=== PATIENT | male | born 1960 | race Hispanic/Latino ===

== ENCOUNTER → 2019-02-27 | Outpatient (CLI) | payer BC ==
[~2019-02-27] MED LIST: LEVO75TA10 PO; TAMS0.4C32 PO
== END | disposition home or self-care (01) ==
LOC: SLP 20:03
PROVIDERS: ATTEND Family Medicine
DX: G47.33 Obstructive sleep apnea (adult) (pediatric) (principal)
CPT/HCPCS: 95811

== ENCOUNTER 2023-05-02 11:27 | Inpatient (IN) | payer BC ==
[~2023-05-02] VITALS: Ht 160 cm; Wt 131.5 kg
[~2023-05-02 11:27] MED LIST changes: +LEVO-70 PO; -LEVO75TA10 PO; +PIOG15TA6 PO; -TAMS0.4C32 PO
[2023-05-02] MEDS ORDERED: 0.9%NACL 1000ML 1,707 ML IV ONE (12:00)
[2023-05-02] MEDS ORDERED: CEFTRIAXONE 2GM VIAL IVPB ONE (12:00)
[2023-05-02 12:16] LABS: BASOPHILS # (AUTO) 0.05 K/uL (0.00-0.20); BASOPHILS % (AUTO) 0.5 % (0.0-5.0); EOSINOPHILS # (AUTO) 0.24 K/uL (0.00-0.70); EOSINOPHILS % (AUTO) 2.2 % (0.0-8.0); IMMATURE GRANULOCYTE ABSOLUTE 0.09 K/uL (0-1); LYMPHOCYTES # (AUTO) 0.7 K/uL (1.0-4.8); LYMPHOCYTES % (AUTO) 6.5 % (21.0-51.0); MEAN CORPUSCULAR HEMOGLOBIN 29.8 pg (27.0-33.0); MEAN CORPUSCULAR HGB CONC 33.2 g/dL (32.0-36.0); MEAN CORPUSCULAR VOLUME 89.8 fL (79-99); MONOCYTES # (AUTO) 0.7 K/uL (0.1-1.0); MONOCYTES % (AUTO) 6.2 % (3.0-13.0); NEUTROPHILS # (AUTO) 9.1 K/uL (1.8-7.7); NEUTROPHILS % (AUTO) 83.8 % (40.0-77.0); PLATELET COUNT (AUTO) 261 K/uL (130-400); RED CELL DISTRIBUTION WIDTH 15.3 % (11.0-15.5); WHITE BLOOD COUNT (AUTO) 10.8 K/uL (4.8-10.8)
[2023-05-02 12:28] LABS: INR 1.02 (0.85-1.15); PROTHROMBIN TIME 11.8 SEC (9.6-11.6)
[2023-05-02 12:29] LABS: PARTIAL THROMBOPLASTIN TIME 27.6 SEC (26.3-35.5)
[2023-05-02 12:34] LABS: CREATININE 2.5 mg/dL (0.5-1.5); POTASSIUM 4.1 mmol/L (3.5-5.1)
[2023-05-02 12:39] LABS: BILIRUBIN,TOTAL 0.8 mg/dL (0.2-1.0); TOTAL PROTEIN, SERUM 6.9 g/dL (6.0-8.3)
[2023-05-02] MEDS ORDERED: ONDANSETRON 4MG INJ IVP ONE (14:30)
[2023-05-02 16:29] LABS: APPEARANCE,URINE CLOUDY (CLEAR); BILIRUBIN,URINE NEGATIVE (NEGATIVE); COLOR,URINE LIGHT-YELLOW (YELLOW); GLUCOSE, URINE (UA) TRACE mg/dL (NEGATIVE); KETONES,URINE NEGATIVE (NEGATIVE); LEUKOCYTE ESTERASE ,URINE NEGATIVE Leu/uL (NEGATIVE); NITRATE,URINE NEGATIVE (NEGATIVE); OCCULT BLOOD,URINE NEGATIVE (NEGATIVE); PROTEIN,URINE 30 mg/dL (NEGATIVE); UROBILINOGEN,URINE 0.2 mg/dL (0.2-1.0)
[2023-05-02 16:30] LABS: ADD UA MICROSCOPIC YES
[2023-05-02 16:32] LABS: MUCUS,URINE RARE LPF (None Seen); RBC,URINE 0-1 /HPF (0-1); SQUAMOUS EPITHELIAL CELL,UR RARE /HPF (0-2)
[2023-05-02] MEDS ORDERED: TEMAZEPAM 15 MG CAPSULE PO PRN (20:00)
[2023-05-02] MEDS ORDERED: ONDANSETRON 4MG INJ IVP PRN (20:00)
[2023-05-02] MEDS ORDERED: HYDRALAZINE 20MG/ML VIAL IV PRN (20:00)
[2023-05-02] MEDS ORDERED: ACETAMINOPHEN 650 MG SUPPOSITORY RC PRN (20:00)
[2023-05-02] MEDS ORDERED: MORPHINE 4 MG SYG IVP PRN (20:00)
[2023-05-02] MEDS: ZOSYN 3.375GM +NS 50ML IVPB SCH (20:54)
[2023-05-02] MEDS: INSULIN HUMULIN R 100 UNIT/ML 3ML SQ SCH (20:58)
[2023-05-02] MEDS ORDERED: 0.9%NACL 50ML IV SCH (21:00)
[2023-05-02] MEDS ORDERED: NOREPINEPHRIN 4MG/NS 250ML 250 ML IV ONE (21:31)
[2023-05-02] MEDS ORDERED: NOREPINEPHRIN 4MG/NS 250ML 250 ML IV SCH (22:00)
[2023-05-03] VITALS (8 sets, daily range): BP systolic 119–146; BP diastolic 52–73; PULSE 85–100; RESP 18–23; O2SAT 96–98
[2023-05-03 06:18] LABS: HEMATOCRIT 40.6 % (42-54); MEAN CORPUSCULAR HGB CONC 32.5 g/dL (32.0-36.0); MEAN CORPUSCULAR VOLUME 92.3 fL (79-99); RED BLOOD CELL COUNT(AUTO) 4.4 MIL/uL (4.50-6.20); RED CELL DISTRIBUTION WIDTH 15.5 % (11.0-15.5); WHITE BLOOD COUNT (AUTO) 7.7 K/uL (4.8-10.8)
[2023-05-03 06:43] LABS: CREATININE 1.3 mg/dL (0.5-1.5); MAGNESIUM 1.6 mg/dL (1.80-2.40); PHOSPHORUS 2.6 mg/dL (2.5-4.9); POTASSIUM 4.1 mmol/L (3.5-5.1); THYROID STIMULATING HORMONE 1.77 uIU/mL (0.36-3.74)
[2023-05-03] MEDS: INSULIN HUMULIN R 100 UNIT/ML 3ML SQ SCH ×4 (07:30→20:07)
[2023-05-03] MEDS: ZOSYN 3.375GM +NS 50ML IVPB SCH ×2 (08:31→21:56)
[2023-05-03] MEDS: ENOXAPARIN SODIUM 40 MG/0.4 ML SYRINGE SQ SCH (08:31)
[2023-05-03] MEDS: PANTOPRAZOLE 40 MG/VIAL IVP SCH ×2 (08:31→21:56)
[2023-05-03] MEDS: DEXTROSE 5 %-0.45 % NACL 1,000 ML IV SCH ×2 (08:33→16:30)
[2023-05-03] MEDS ORDERED: MAGNESIUM 2GM PREMIX 50ML 50 ML IV PRN (09:00)
[2023-05-03] MEDS ORDERED: POTASSIUM CHLORIDE 20MEQ/100ML 100 ML IV PRN (09:00)
[2023-05-03] MEDS ORDERED: KCL 20 MEQ ERTAB PO PRN (09:00)
[2023-05-03] MEDS ORDERED: POTASSIUM CHLORIDE 10% ELIXIR 20 MEQ/15 ML UDCUP PO PRN (09:00)
[2023-05-04] MEDS ORDERED: ACETAMINOPHEN 325 MG TAB PO PRN ×2
[2023-05-04 00:10] VITALS: BP 147/68; PULSE 86; RESP 20
[2023-05-04] MEDS: DEXTROSE 5 %-0.45 % NACL 1,000 ML IV SCH ×2 (00:30→08:30)
[2023-05-04 04:27] VITALS: BP 152/79; PULSE 66; RESP 19
[2023-05-04 04:40] LABS: HEMATOCRIT 38.9 % (42-54); MEAN CORPUSCULAR HEMOGLOBIN 29.7 pg (27.0-33.0); MEAN CORPUSCULAR HGB CONC 31.9 g/dL (32.0-36.0); MEAN CORPUSCULAR VOLUME 93.3 fL (79-99); RED BLOOD CELL COUNT(AUTO) 4.17 MIL/uL (4.50-6.20)
[2023-05-04 04:47] LABS: CREATININE 1.1 mg/dL (0.5-1.5); MAGNESIUM 1.7 mg/dL (1.80-2.40); POTASSIUM 3.8 mmol/L (3.5-5.1)
[2023-05-04] MEDS: INSULIN HUMULIN R 100 UNIT/ML 3ML SQ SCH ×2 (05:35→11:30)
[2023-05-04 08:00] VITALS: BP 120/71; PULSE 77; RESP 16; O2SAT 95
[2023-05-04] MEDS: ZOSYN 3.375GM +NS 50ML IVPB SCH (10:09)
[2023-05-04] MEDS: PANTOPRAZOLE 40 MG/VIAL IVP SCH (10:09)
[2023-05-04] MEDS: ENOXAPARIN SODIUM 40 MG/0.4 ML SYRINGE SQ SCH (10:10)
[2023-05-04 12:00] VITALS: BP 114/58; PULSE 81; RESP 20
== END 2023-05-04 14:35 | disposition home or self-care (01) | DRG 682 ==
LOC: EDH 11:27 → EDHIP 19:28 → 2CH 05-03 07:41 → 4BH 05-03 08:32
PROVIDERS: ADMIT Internal Medicine; ATTEND Internal Medicine
DX: N17.9 Acute kidney failure, unspecified (principal); R57.1 Hypovolemic shock; A09 Infectious gastroenteritis and colitis, unspecified; Z68.43 Body mass index [BMI] 50.0-59.9, adult; E87.20 Acidosis, unspecified; E86.0 Dehydration; E11.65 Type 2 diabetes mellitus with hyperglycemia; E88.09 Other disorders of plasma-protein metabolism, not elsewhere classified; E66.01 Morbid (severe) obesity due to excess calories; E03.9 Hypothyroidism, unspecified; N40.0 Benign prostatic hyperplasia without lower urinary tract symptoms; E78.5 Hyperlipidemia, unspecified; G47.33 Obstructive sleep apnea (adult) (pediatric); I10 Essential (primary) hypertension; K76.0 Fatty (change of) liver, not elsewhere classified; I95.9 Hypotension, unspecified; Z91.199 Patient's noncompliance with other medical treatment and regimen due to unspecified reason; Z79.899 Other long term (current) drug therapy
CPT/HCPCS: 36415; 71045; 74176; 80048; 80053; 81001; 82948; 83605; 83735; 83880; 84100; 84145; 84443; 84484; 85025; 85027; 85610; 85730; 87040; 87088; 87324; 93005; 96365; 96375; C9113; G0378; J0696; J1650; J2405; J2543; J3475; J3490; J7030; G8980-CH; G8983-CH

== ENCOUNTER 2024-04-17 14:27 | Emergency (ER) | payer BC ==
[~2024-04-17] VITALS: Ht 160 cm; Wt 121.6 kg
[~2024-04-17 14:27] MED LIST changes: +ONDA-243 PO
[2024-04-17 16:05] LABS: BASOPHILS # (AUTO) 0.03 K/uL (0.00-0.20); BASOPHILS % (AUTO) 0.3 % (0.0-5.0); EOSINOPHILS # (AUTO) 0.14 K/uL (0.00-0.70); EOSINOPHILS % (AUTO) 1.5 % (0.0-8.0); HEMATOCRIT 45.4 % (42-54); IMMATURE GRANULOCYTE ABSOLUTE 0.05 K/uL (0-1); LYMPHOCYTES # (AUTO) 1.1 K/uL (1.0-4.8); LYMPHOCYTES % (AUTO) 11.5 % (21.0-51.0); MEAN CORPUSCULAR HGB CONC 33.5 g/dL (32.0-36.0); MEAN CORPUSCULAR VOLUME 86.6 fL (79-99); MONOCYTES # (AUTO) 0.6 K/uL (0.1-1.0); MONOCYTES % (AUTO) 6.1 % (3.0-13.0); NEUTROPHILS # (AUTO) 7.4 K/uL (1.8-7.7); NEUTROPHILS % (AUTO) 80.1 % (40.0-77.0); PLATELET COUNT (AUTO) 222 K/uL (130-400); RED BLOOD CELL COUNT(AUTO) 5.24 MIL/uL (4.50-6.20); RED CELL DISTRIBUTION WIDTH 14.8 % (11.0-15.5); WHITE BLOOD COUNT (AUTO) 9.2 K/uL (4.8-10.8)
[2024-04-17 16:15] LABS: CREATININE 1.1 mg/dL (0.5-1.3); POTASSIUM 3.5 mmol/L (3.5-5.1)
[2024-04-17] MEDS: ondanSETRON 4MG INJ IVP ONE (16:54)
[2024-04-17] MEDS: PANTOPrazole 40 MG/VIAL IVP ONE (16:54)
[2024-04-17] MEDS: 0.9% NACL 500ML IV.SOLN 500 ML IV ONE (16:55)
[2024-04-17 17:13] LABS: APPEARANCE,URINE CLEAR (CLEAR); BILIRUBIN,URINE NEGATIVE (NEGATIVE); COLOR,URINE YELLOW (YELLOW); GLUCOSE, URINE (UA) NEGATIVE (NEGATIVE); KETONES,URINE 5 mg/dL (NEGATIVE); LEUKOCYTE ESTERASE ,URINE NEGATIVE Leu/uL (NEGATIVE); NITRATE,URINE NEGATIVE (NEGATIVE); OCCULT BLOOD,URINE NEGATIVE (NEGATIVE); PROTEIN,URINE NEGATIVE (NEGATIVE); UROBILINOGEN,URINE 0.2 mg/dL (0.2-1.0)
[2024-04-17 17:15] LABS: ADD UA MICROSCOPIC NO
[2024-04-17 17:47] VITALS: BP 138/56; PULSE 77; RESP 20; TEMP 98.3; O2SAT 98
[2024-04-17] MEDS ORDERED: PANT40GR PO (18:01)
[2024-04-17] MEDS ORDERED: ONDA-243 PO (18:01)
== END 2024-04-17 18:24 | disposition home or self-care (01) ==
LOC: EDH 14:27
DX: K52.9 Noninfective gastroenteritis and colitis, unspecified (principal); E11.9 Type 2 diabetes mellitus without complications; I10 Essential (primary) hypertension; Z79.899 Other long term (current) drug therapy
CPT/HCPCS: 99284; 74176; 96374; 71045; 96375; 84484; 80048; 83690; 85025; 81003; 36415; 93005; J7040; J2405; J2470

== ENCOUNTER 2024-09-17 06:50 | Observation (INO) | payer BC ==
[2024-09-12 10:42] LABS: BASOPHILS # (AUTO) 0.08 K/uL (0.00-0.20); BASOPHILS % (AUTO) 0.6 % (0.0-5.0); EOSINOPHILS # (AUTO) 0.38 K/uL (0.00-0.70); HEMATOCRIT 41.8 % (42-54); IMMATURE GRANULOCYTE ABSOLUTE 0.05 K/uL (0-1); LYMPHOCYTES # (AUTO) 2.8 K/uL (1.0-4.8); LYMPHOCYTES % (AUTO) 21.9 % (21.0-51.0); MEAN CORPUSCULAR HEMOGLOBIN 29.6 pg (27.0-33.0); MEAN CORPUSCULAR VOLUME 89.5 fL (79-99); MONOCYTES # (AUTO) 0.9 K/uL (0.1-1.0); MONOCYTES % (AUTO) 7.2 % (3.0-13.0); NEUTROPHILS # (AUTO) 8.6 K/uL (1.8-7.7); NEUTROPHILS % (AUTO) 66.9 % (40.0-77.0); PLATELET COUNT (AUTO) 310 K/uL (130-400); RED BLOOD CELL COUNT(AUTO) 4.67 MIL/uL (4.50-6.20); RED CELL DISTRIBUTION WIDTH 13.7 % (11.0-15.5); WHITE BLOOD COUNT (AUTO) 12.8 K/uL (4.8-10.8)
[2024-09-12 10:54] LABS: ALBUMIN 3.6 g/dL (3.5-5.0); CREATININE 0.8 mg/dL (0.5-1.3); POTASSIUM 3.6 mmol/L (3.5-5.1)
[2024-09-12 10:55] LABS: INR 0.99 (0.85-1.15); PROTHROMBIN TIME 11.1 SEC (9.6-11.6)
[2024-09-12 10:56] LABS: PARTIAL THROMBOPLASTIN TIME 30.3 SEC (26.3-35.5)
[2024-09-12 11:32] VITALS: BP 150/72; PULSE 64; RESP 18; TEMP 97.2
--- NOTE | 2024-09-14 16:15 | NUR ---
RE: LABS REPORTED CBC RESULTS TO DR YBARRA AND CRP RESULTS WELL. PATIENT ASYMPTOMATIC. NO NEW ORDERS RECEIVED, OK TO PROCEED.
[~2024-09-17] VITALS: Ht 160 cm; Wt 109.4 kg
[2024-09-17] VITALS (26 sets, daily range): BP systolic 116–159; BP diastolic 65–85; PULSE 80–90; RESP 13–22; TEMP 97.2–98.8; O2SAT 96
[~2024-09-17 06:50] MED LIST changes: -LEVO-70 PO; +LISI10TA24 PO; +METF-444 PO; -ONDA-243 PO; -PIOG15TA6 PO; +ROSU10TA72 PO; +TIRZ10PE SQ
[2024-09-17] MEDS ORDERED: LIDOCAINE PF 100MG/5ML (2%) SYRINGE 5ML ONE (07:30)
[2024-09-17] MEDS ORDERED: MIDAZOLAM HCL 1 MG/ML 2ML VIAL ONE (07:32)
[2024-09-17] MEDS ORDERED: proPOFol 10 MG/ML 20ML VIAL IV ONE (07:32)
[2024-09-17] MEDS ORDERED: rocuRONium bROMide 10MG/1ML 5ML VL ONE ×2 (07:32→09:28)
[2024-09-17] MEDS ORDERED: FENTanyl CITRate PF 50 MCG/1 ML 2ML VIAL ONE ×2 (07:33→11:02)
[2024-09-17] MEDS: ceFAZolin SODIUM 2 GM VIAL ONE (07:44)
[2024-09-17] MEDS: 0.9%NACL 1000ML 1,000 ML IV ONE (07:44)
[2024-09-17] MEDS ORDERED: ROPivacaine 0.5% 5MG/ML 30ML ONE ×2 (08:48→09:16)
[2024-09-17] MEDS ORDERED: dexaMETHasone SOD PHOSPHATE 4 MG/ML 1ML VIAL ONE ×2 (08:48→08:58)
[2024-09-17] MEDS ORDERED: ondanSETRON 4MG INJ ONE (08:58)
[2024-09-17] MEDS ORDERED: ketOROlac 30MG VIAL (30MG/ML) ONE ×2 (08:59→09:16)
[2024-09-17] MEDS ORDERED: phenylEPHRINE HCL 10 MG/ML 1ML VIAL IV ONE (08:59)
[2024-09-17] MEDS ORDERED: GLYCOPYRROLATE 0.2 MG/ML 5 ML VIAL ONE (08:59)
[2024-09-17] MEDS ORDERED: NEOSTIGMINE METHYLSULFATE 1MG/ML IV ONE (08:59)
[2024-09-17] MEDS: metFORmin HCL 500 MG TABLET PO SCH (09:00)
[2024-09-17] MEDS: GABApentin 100 MG CAPSULE PO SCH (09:00)
[2024-09-17] MEDS ORDERED: CALCIUM CARB 500MG PO PRN (09:00)
[2024-09-17] MEDS ORDERED: PoTASSium chl 10% ELIXIR 20MEQ 20 MEQ/15 ML UDCUP PO PRN (09:00)
[2024-09-17] MEDS ORDERED: polyETHYLene GLYCol 3350 17 GM POWD.PACK PO SCH (09:00)
[2024-09-17] MEDS ORDERED: PoTASSium chloRIDE 20MEQ/100ML 100 ML IV PRN (09:00)
[2024-09-17] MEDS: polyETHYLene GLYCol 3350 17 GM POWD.PACK PO SCH (09:00)
[2024-09-17] MEDS ORDERED: HYDROcodone/APAP 5/325 1 TAB TABLET PO PRN ×2 (09:00→09:30)
[2024-09-17] MEDS: doCUSate SODIUM 100 MG CAP PO SCH (09:00)
[2024-09-17] MEDS ORDERED: 0.9%NACL 1000ML 1,000 ML IV SCH (09:00)
[2024-09-17] MEDS ORDERED: PoTASSium chloRIDE 20MEQ ER 20 MEQ ERTAB PO PRN (09:00)
[2024-09-17] MEDS ORDERED: ondanSETRON 4MG INJ IVP PRN (09:00)
[2024-09-17] MEDS: LISINOPRIL 10 MG TABLET PO SCH (09:00)
[2024-09-17] MEDS ORDERED: FERROUS FUMARATE 324 MG TABLET PO PRN ×2 (09:00)
--- NOTE | 2024-09-17 09:05 | DS ---
Discharge Summary Hospital Course Summary: The patient was admitted to the hospital postoperatively on 09/17/2024 after undergoing left total knee arthroplasty. They did well with routine postoperative pain control. They worked well with physical therapy. They developed some acute blood loss anemia but remained asymptomatic. The hospital course was otherwise uncomplicated. They were subsequently able to be discharged on postoperative day [] once discharge arrangements were made with [facility]. Iron Cutter(s): None Procedure(s): Left total knee arthroplasty, 09/17/2024 Assessment/Plan: ASSESSMENT: Status post left total knee arthroplasty PLAN: See discharge instructions Discharge Instructions: Begin working with physical therapy at the facility. Dressing may be removed 09/19/2024 and left open to air. Showers ok allowing soap and water to run over the wound. Pat dry. Do not submerge wound in tub/pool. Do not apply ointments. Do not apply Betadine. Do not apply peroxide. Ice packs to decrease pain/swelling. Prescriptions have been sent to the pharmacy: *[place] 5/325mg 1-2 tab every 6 hours as needed for severe pain. (please call for refills) Cyclobenzaprine 5mg 1 tab every 8 hours as needed for muscle spasm pain. Gabapentin 100mg 1 tab every 8 hours (may discontinue if drowsy). Colace 100mg 1 tab orally twice a day as needed for constipation. Aspirin 325mg twice a day for 30 days to prevent blood clots. Call for a follow-up appointment in 2-3 weeks at [facility]. Home Medications: Reported Medications Rosuvastatin Calcium (Rosuvastatin Calcium) 10 Mg Tablet, 10 MG PO DAILY, TAB 09/12/24 Lisinopril (Lisinopril) 10 Mg Tablet, 10 MG PO DAILY, TAB 09/12/24 Tirzepatide (Mounjaro) 10 Mg/0.5 Ml Pen.injctr, 10 MG SQ QWEEK 09/12/24 Metformin HCl (Metformin HCl) 500 Mg Tablet, 500 MG PO DAILY, TAB 09/12/24 Discontinued Scripts Pantoprazole Sodium (Pantoprazole Sodium) 40 Mg Granpkt., 40 MG PO DAILY, #30 PACK Prov:MARY NUNEZ MD 04/17/24 Ondansetron (Ondansetron Odt) 4 Mg Tab.rapdis, 4 MG PO Q6HPRN PRN for NAUSEA/VOMITING for 10 Days, #30 TAB Prov:MARY NUNEZ MD 04/17/24 Ondansetron (Ondansetron Odt) 4 Mg Tab.rapdis, 4 MG PO Q6HPRN PRN for nausea, #16 TAB 0 Refills Prov:BETHANIE GILES NP 11/06/23 Levofloxacin (Levofloxacin) 500 Mg Tablet, 500 MG PO DAILY for 10 Days, #10 TAB 0 Refills Prov:SHRADDHA SINCLAIR BANQUET PILOT 06/16/22 Pioglitazone HCl (Actos) 15 Mg Tablet, 15 MG PO DAILY, #30 TAB 2 Refills Prov:SHRADDHA SINCLAIR BANQUET PILOT 06/16/22 BELLA YBARRA MD Sep 17, 2024 09:05
[2024-09-17] MEDS ORDERED: TRANEXAMIC ACID 1000MG/10ML ONE (09:14)
[2024-09-17] MEDS: ceFAZolin SODIUM 2 GM VIAL IVPB ONE (09:15)
--- NOTE | 2024-09-17 10:52 | OP ---
Operative Note: DATE OF PROCEDURE: 09/17/24 PREOPERATIVE DIAGNOSIS: Left knee osteoarthritis. POSTOPERATIVE DIAGNOSIS: Left knee osteoarthritis. PROCEDURE PERFORMED: Left knee total knee arthroplasty. SURGEON: Kindra Amor MD DIRECTOR INDEPENDENT: Jones Menon. ANESTHESIA: General with adductor canal block. ANESTHESIA: DENISE Young. ESTIMATED BLOOD LOSS: 50cc. COMPLICATIONS: None. DRAINS: None. SPECIMENS REMOVED: resected bone. Not sent to pathology. IMPLANTS: [employer] II BCS size 6 Oxinium femur, size 5 tibial base plate, 35 mm patella, 13 mm polyethylene STATEMENT OF MEDICAL NECESSITY: The patient is a 64-year-old male who suffers from left knee osteoarthritis failing conservative management. After discussion of the risks, benefits, and alternatives with the patient, they voluntarily agreed to undergo the aforementioned procedure. DESCRIPTION OF PROCEDURE: Patient was properly identified in the preoperative holding area. Surgical site marking was verified and surgery consent reviewed. The patient was then taken to the operating room and placed in supine position o n the OR table. After induction of general anesthesia, preoperative antibiotics were given, all bony prominences were well-padded, and a well padded tourniquet was applied but not inflated at this time. The left lower extremity was then prepped and draped in usual sterile fashion. Surgical time out was done verifying correct surgery, side, site, and location to be performed. We then began the procedure by exsanguinating the limb using an Esmarch and inflating the tourniquet to 350 mmHg. At this point, we made an anterior midline incision using a 10 blade, coming down sharply the level of the fascia. Skin flaps were elevated medially and laterally. We then obtained a clean 10 blade and performed a standard medial parapatellar arthrotomy. We excised the infrapatellar fat pad. We performed our soft tissue releases off of the tibia. We transected the ACL and removed the anterior portion of the medial & lateral meniscus. We then brought the knee into hyperflexion with the patella everted. We used our entry reamer to enter the femoral canal. We then placed our intramedullary cutting guide for our distal femoral cutting block. We then performed our distal femoral osteotomy ensuring appropriate rotation and removed the bony wafer. We then removed these pins and block and then used jig 2 to size the distal femur with the after mentioned size found. We then placed our 5-in-1 cutting block in 4 degrees of external rotation and took our 5 cuts ensuring to protect the patellar tendon and the collateral ligaments. We then removed the cutting block and our bony fragments using a curved osteotome. We then placed our PCL retractor subluxating the tibia anteriorly. Using an extra medullary tibial cutting guide, we hung the block for our proximal tibial cut taking 2 mm off the more diseased portion. Prior to pinning this block in place, we ensured appropriate varus/valgus alignment and posterior slope similar to the [place] slope of the patient's knee. We then performed our proximal tibial osteotomy and removed the bony wafer using Bovie electrocautery to release any remaining soft tissue attachments. We then used our tibial sizing p addle and checked once more for varus & valgus alignment and found this to be appropriate. At this point, we pinned our tibial paddle in place. We then removed the PCL retractor and subluxated the tibia posteriorly while we placed our femoral trial component. We then finished preparing the notch with the reamer and box chisel. The notch portion of the trial femoral component was then placed. A posterior stabilized polyethylene, size 9 trial was placed. This was immediately increased up to a size 11 polyethylene secondary to laxity with varus and valgus stressing. The knee was then taken through range of motion and found to have stable full range of motion. We then placed a bump under the ankle and everted the patella to perform our freehand cut of the undersurface the patella. We then sized our patella and reamed to the lug holes for this. We placed our trial patellar component and begin to take the knee through range of motion. The patella had appropriate tracking. At this point we began removing our trial components and punched the tibial keel prior to removing our tibial trial component. Final components were opened and cement was mixed on the back table while we injected local cocktail in the posterior capsule. We then thoroughly irrigated out the bone and dried the bony surfaces. We cemented our tibial component in place ensuring to remove excess cement and placed our trial polyethylene. We then cemented our femoral component in place once again taking time to ensure excess cement was removed leg was brought into full extension to help squeeze the excess cement from around the femoral component. We then brought the knee back in a flexion to remove this portion of the cement at this point we placed the ankle in a bump thoroughly irrigated off the patellar component and cemented our patellar component in standard fashion again removing excess cement. While we waited for the cement to cure, we thoroughly irrigated out the wound with normal saline. Once our cement had cured, we took the knee through a range of motion and found full and stable range of motion. We then elected to use the size 13 polyethylene and removed our trial polyethylene. We impacted our final polyethylene component in place in standard fashion and took the knee through a range of motion check once more. This was satisfactory so we began to repair the arthrotomy using #1 Vicryl in interrupted [id number] fashion. Subcutaneous tissue was repaired using 2-0 Vicryl. Running subcuticular 3-0 Monocryl stitch with Dermabond placed over this for the skin. We then applied a foam barrier dressing and a pressure dressing consisting of 4 x 4's fluffs and an Nas wrap. The tourniquet was then deflated. Patient was awakened from anesthesia, and they were taken to the recovery room in stable condition. KINDRA AMOR MD Sep 17, 2024 10:52
[2024-09-17] MEDS: INSULIN humuLIN R 100 UNIT/ML 3ML SQ SCH (11:30)
[2024-09-17] MEDS: MEPERIDINE-PF 50 MG/ML SYG ONE (12:04)
[2024-09-17] MEDS: ketOROlac 15MG/ML VIAL (15MG/ML) ONE (12:05)
[2024-09-17] MEDS: ketOROlac 15MG/ML VIAL (15MG/ML) IV SCH (12:05)
--- NOTE | 2024-09-17 12:31 | HMCIMG ---
KNEE/PATELLA 1-2VWS LT HISTORY: Left total knee arthroplasty COMPARISON: None TECHNIQUE: 2 images of left knee were obtained. FINDINGS: Total left knee arthroplasty changes are seen. Soft tissue swelling is seen with soft tissue emphysema. There is no acute displaced fracture or dislocation. Degenerative changes are seen. IMPRESSION: 1. Findings as described above.
--- NOTE | 2024-09-17 12:40 | NUR ---
ARRIVED TO UNIT: PT ARRIVED TO UNIT. PT AT BEDSIDE. PT AAOX4, PT DENIES PAIN AT THIS TIME. PT CONNECTED TO POST- OP VITALS, BP STABLE, WILL CONTINUE TO MONITOR.
[2024-09-17] MEDS: 0.9%NACL 1000ML 1,000 ML IV SCH (12:50)
[2024-09-17] MEDS: HYDROcodone/APAP 5/325 1 TAB TABLET PO PRN (13:41)
--- NOTE | 2024-09-17 14:30 | NUR ---
ORTHO COORDINATOR: TEACHING REGARDING DVT AND PNEUMONIA PREVENTION, PAIN EXPECTATIONS, PAIN MANAGEMENT PATIENT UP TO CHAIR. FAMILY AT BEDSIDE. INCENTIVE SPIROMETER ON BEDSIDE TRAY. PATIENT INSTRUCTED TO COMPLETE EVERY HOUR, 10 TIMES PER HOUR. RATIONALE PROVIDED. B SCD SLEEVES IN ROOM. SCD MACHINE IN ROOM. PATIENT RETURN DEMONSTRATED PROPER FOOT FLEXION/EXTENSION TECHNIQUE. REVIEWED NUMERIC PAIN SCALE. INSTRUCTED PATIENT PAIN MEDICATIONS MUST BE REQUESTED. REVIEWED MEDICATIONS AVAILABLE FOR PAIN LEVEL 1-10. PATIENT VERBALIZED UNDERSTANDING. NO ADDITIONAL QUESTIONS OR CONCERNS AT THIS TIME. ICE PACK PLACED TO OPERATIVE SITE.
[2024-09-17] MEDS: CYCLOBENZAPRINE HCL 10 MG TABLET PO PRN (16:41)
[2024-09-17] MEDS: traMADol HCL 50 MG TABLET PO PRN (16:41)
[2024-09-17] MEDS: ceFAZolin SODIUM 2 GM VIAL IVP SCH (17:27)
[2024-09-17] MEDS: atorVAStatin 40 MG TABLET PO SCH (19:42)
[2024-09-18] VITALS (7 sets, daily range): BP systolic 128–154; BP diastolic 63–74; PULSE 73–86; RESP 17–19; TEMP 98.2–98.8; O2SAT 99–100
[2024-09-18 04:08] LABS: HEMATOCRIT 34.7 % (42-54); MEAN CORPUSCULAR HEMOGLOBIN 29.2 pg (27.0-33.0); MEAN CORPUSCULAR HGB CONC 33.1 g/dL (32.0-36.0); MEAN CORPUSCULAR VOLUME 88.1 fL (79-99); RED BLOOD CELL COUNT(AUTO) 3.94 MIL/uL (4.50-6.20); WHITE BLOOD COUNT (AUTO) 13.3 K/uL (4.8-10.8)
[2024-09-18 04:17] LABS: CREATININE 0.9 mg/dL (0.5-1.3); POTASSIUM 3.8 mmol/L (3.5-5.1)
--- NOTE | 2024-09-18 05:46 | NUR ---
PATIENT'S IV TO LEFT FOREARM NOTED INFILTRATED. IV DISCONTINUED AT THIS TIME. 20G IV SUCCESSFULLY INSERTED TO PATIENT'S RIGHT FOREARM. FLUIDS STARTED AT 100CC/HR. PATIENT TOLERATED VENIPUNCTURE.
[2024-09-18] MEDS: ASPIRIN 325MG TAB PO SCH (08:39)
--- NOTE | 2024-09-18 08:45 | PN ---
Ortho postop day one. This morning the patient is awake alert and oriented. He is seated out of bed in a chair resting comfortably. Reports adequate pain control. Reports having a restful night. Vital signs have been stable. Afebrile. Voiding on his own without difficulty and passing gas but no BM yet. Laboratory results reviewed. Noted to have a drop in hemoglobin and hematocrit as expected after total knee arthroplasty. Patient is asymptomatic we will address per protocol as necessary. Reinforce incentive spirometry returned demonstration adequate. The Nas bandage is removed and the dressing is intact to the anterior joint. The gastrocnemius a soft nontender. Negative Homans. He is alternating extension and flexion and a footstool while seated in a chair. He ambulated yesterday we with physical therapy about 40 ft and is pending further physical therapy this morning. [facility]tic[facility] Assessment: Status post left total knee arthroplasty. Asymptomatic acute postoperative blood loss anemia. Plan: Continue with Dr. Amor's TKA protocol and discharge planning. Asymptomatic acute postoperative blood loss anemia addressed with the protocol as necessary. Vitals/Labs Vital Signs Date Time Temp Pulse Resp B/P (MAP) Pulse Ox O2 Delivery O2 Flow Rate FiO2 09/18/24 08:00 98.4 73 17 128/70 100 Room Air 0.0 09/17/24 19:00 21 Laboratory Tests 09/18/24 03:43 Medications Current Medications Cefazolin Sodium 2 gm STK-MED ONCE .ROUTE; Start 09/17/24 at 07:19; Stop 09/17/24 at 07:19; Status DC Sodium Chloride 1,000 ml @ As Directed STK-MED ONCE IV Last administered on 09/17/24at 07:44; Start 09/17/24 at 07:19; Stop 09/17/24 at 07:19; Status DC Lidocaine HCl 100 mg STK-MED ONCE .ROUTE; Start 09/17/24 at 07:30; Stop 09/17/24 at 07:30; Status DC Midazolam HCl 2 mg STK-MED ONCE .ROUTE; Start 09/17/24 at 07:32; Stop 09/17/24 at 07:32; Status DC Propofol 200 mg STK-MED ONCE IV; Start 09/17/24 at 07:32; Stop 09/17/24 at 07:32; Status DC Rocuronium [place] 50 mg STK-MED ONCE .ROUTE; Start 09/17/24 at 07:32; Stop 09/17/24 at 07:33; Status DC Fentanyl Citrate 100 mcg STK-MED ONCE .ROUTE; Start 09/17/24 at 07:33; Stop 09/17/24 at 07:33; Status DC Dexamethasone Sodium Phosphate 4 mg STK-MED ONCE .ROUTE; Start 09/17/24 at 08:48; Stop 09/17/24 at 08:49; Status DC Ropivacaine 150 mg STK-MED ONCE .ROUTE; Start 09/17/24 at 08:48; Stop 09/17/24 at 08:49; Status DC Dexamethasone Sodium Phosphate 4 mg STK-MED ONCE .ROUTE; Start 09/17/24 at 08:58; Stop 09/17/24 at 08:58; Status DC Ondansetron HCl 4 mg STK-MED ONCE .ROUTE; Start 09/17/24 at 08:58; Stop 09/17/24 at 08:58; Status DC Sodium Chloride 1,000 ml @ 100 mls/hr Q10H IV Last administered on 09/18/24at 05:44; Start 09/17/24 at 09:00; Stop 09/18/24 at 08:59 Polyethylene Glycol 17 gm DAILY PO; Start 09/17/24 at 09:00; Stop 09/17/24 at 09:19; Status DC Bisacodyl 10 mg DAILY PRN RC; Start 09/20/24 at 09:00; Stop 10/20/24 at 08:59 Aspirin 325 mg BID PO; Start 09/18/24 at 09:00; Stop 09/17/24 at 09:18; Status DC Ketorolac Tromethamine 15 mg Q6H PRN IV; Start 09/18/24 at 09:00; Stop 09/23/24 at 08:59 Ferrous Fumarate 324 mg DAILY PRN PO; Start 09/17/24 at 09:00; Stop 10/17/24 at 08:59 Ketorolac Tromethamine 30 mg STK-MED ONCE .ROUTE; Start 09/17/24 at 08:59; Stop 09/17/24 at 08:59; Status DC Glycopyrrolate 1 mg STK-MED ONCE .ROUTE; Start 09/17/24 at 08:59; Stop 09/17/24 at 08:59; Status DC Neostigmine Methylsulfate 10 mg STK-MED ONCE IV; Start 09/17/24 at 08:59; Stop 09/17/24 at 08:59; Status DC Phenylephrine HCl 10 mg STK-MED ONCE IV; Start 09/17/24 at 08:59; Stop 09/17/24 at 09:00; Status DC Sodium Chloride 1,000 ml @ 100 mls/hr Q10H IV; Start 09/17/24 at 09:00; Stop 09/17/24 at 09:18; Status DC Polyethylene Glycol 17 gm DAILY PO Last administered on 09/18/24at 08:38; Start 09/17/24 at 09:00; Stop 10/17/24 at 08:59 Bisacodyl 10 mg DAILY PRN RC; Start 09/20/24 at 09:00; Stop 09/17/24 at 09:18; Status DC Aspirin 325 mg BID PO Last administered on 09/18/24at 08:39; Start 09/18/24 at 09:00; Stop 10/18/24 at 08:59 Ketorolac Tromethamine 15 mg Q6H PRN IV; Start 09/18/24 at 09:00; Stop 09/17/24 at 09:18; Status DC Ferrous Fumarate 324 mg DAILY PRN PO; Start 09/17/24 at 09:00; Stop 09/17/24 at 09:19; Status DC Ondansetron HCl 4 mg Q6H PRN IVP; Start 09/17/24 at 09:00; Stop 10/17/24 at 08:59 Calcium Carbonate 500 mg Q12H PRN PO; Start 09/17/24 at 09:00; Stop 10/17/24 at 08:59 Insulin Human Regular INSULIN SLIDING SCAL... ACHS SQ; Start 09/17/24 at 11:30; Stop 10/17/24 at 11:29 Cefazolin Sodium 2 gm Q8H IVP Last administered on 09/18/24at 02:04; Start 09/17/24 at 14:00; Stop 09/17/24 at 22:01; Status DC Cyclobenzaprine HCl 5 mg Q8H PRN PO Last administered on 09/17/24at 16:41; Start 09/17/24 at 09:00; Stop 10/17/24 at 08:59 Gabapentin 100 mg TID PO Last administered on 09/18/24at 08:38; Start 09/17/24 at 09:00; Stop 10/17/24 at 08:59 Ketorolac Tromethamine 15 mg Q8H IV Last administered on 09/18/24at 03:28; Start 09/17/24 at 09:00; Stop 09/18/24 at 01:01; Status DC Docusate Sodium 100 mg BID PO Last administered on 09/18/24at 08:39; Start 09/17/24 at 09:00; Stop 10/17/24 at 08:59 Potassium Chloride 100 ml @ 100 mls/hr AD PRN IV; Start 09/17/24 at 09:00; Stop 10/17/24 at 08:59 Potassium Chloride 20 meq AD PRN PO; Start 09/17/24 at 09:00; Stop 10/17/24 at 08:59 Potassium Chloride 20 meq AD PRN PO; Start 09/17/24 at 09:00; Stop 10/17/24 at 08:59 Tramadol HCl 50 mg Q6H PRN PO Last administered on 09/17/24at 16:41; Start 09/17/24 at 09:00; Stop 09/22/24 at 08:59 Acetaminophen/ Hydrocodone Bitart Q4H PRN PO; Start 09/17/24 at 09:00; Stop 09/17/24 at 09:26; Status DC Lisinopril 10 mg DAILY PO Last administered on 09/18/24at 08:39; Start 09/17/24 at 09:00; Stop 10/17/24 at 08:59 Metformin HCl 500 mg DAILY PO Last administered on 09/18/24at 08:39; Start 09/17/24 at 09:00; Stop 10/17/24 at 08:59 Atorvastatin Calcium 40 mg HS PO Last administered on 09/17/24at 19:42; Start 09/17/24 at 21:00; Stop 10/17/24 at 20:59 Home Med Tirzepatide (Mounjaro) 10 MG QWEEK SQ; Start 09/24/24 at 09:00; Stop 10/24/24 at 08:59 Tranexamic Acid 1,000 mg STK-MED ONCE .ROUTE; Start 09/17/24 at 09:14; Stop 09/17/24 at 09:14; Status DC Ketorolac Tromethamine 30 mg STK-MED ONCE .ROUTE; Start 09/17/24 at 09:16; Stop 09/17/24 at 09:16; Status DC Ropivacaine 150 mg STK-MED ONCE .ROUTE; Start 09/17/24 at 09:16; Stop 09/17/24 at 09:16; Status DC Acetaminophen/ Hydrocodone Bitart 1 tab Q6H PRN PO Last administered on 09/18/24at 08:41; Start 09/17/24 at 09:30; Stop 09/22/24 at 09:29 Acetaminophen/ Hydrocodone Bitart 1 tab Q6H PRN PO; Start 09/17/24 at 09:30; Stop 09/22/24 at 09:29 Rocuronium [place] 50 mg STK-MED ONCE .ROUTE; Start 09/17/24 at 09:28; Stop 09/17/24 at 09:28; Status DC Fentanyl Citrate 100 mcg STK-MED ONCE .ROUTE; Start 09/17/24 at 11:02; Stop 09/17/24 at 11:02; Status DC Cefazolin Sodium 2 gm STK-MED ONCE IVPB Last administered on 09/17/24at 09:15; Start 09/17/24 at 09:15; Stop 09/17/24 at 11:43; Status DC Tranexamic Acid 1,000 mg STK-MED ONCE IV Last administered on 09/17/24at 09:20; Start 09/17/24 at 09:20; Stop 09/17/24 at 11:43; Status DC Ropivacaine 150 mg STK-MED ONCE IJ Last administered on 09/17/24at 10:50; Start 09/17/24 at 10:50; Stop 09/17/24 at 11:43; Status DC Ketorolac Tromethamine 30 mg STK-MED ONCE IJ Last administered on 09/17/24at 10:50; Start 09/17/24 at 10:50; Stop 09/17/24 at 11:43; Status DC Tranexamic Acid 1,000 mg STK-MED ONCE IV Last administered on 09/17/24at 11:18; Start 09/17/24 at 11:18; Stop 09/17/24 at 11:43; Status DC Meperidine HCl 50 mg STK-MED ONCE .ROUTE Last administered on 09/17/24at 12:04; Start 09/17/24 at 11:37; Stop 09/17/24 at 11:37; Status DC Ketorolac Tromethamine 15 mg STK-MED ONCE .ROUTE; Start 09/17/24 at 11:58; Stop 09/17/24 at 11:59; Status DC NIKITA PINTO NP Sep 18, 2024 08:45
[2024-09-18] MEDS ORDERED: ketOROlac 15MG/ML VIAL (15MG/ML) IV PRN (09:00)
[2024-09-18] MEDS ORDERED: ASPIRIN 325MG TAB PO SCH (09:00)
--- NOTE | 2024-09-18 11:30 | NUR ---
[facility] CM MET WITH PT INITIAL ASSESSMENT DONE. PATIENT IS INDEPENDENT PRIOR TO SURGERY, LIVES AT HOME WITH HIS , DAUGHTER CURRENTLY STAYING W/PT TEMPORARILY. PATIENT HAS A WHEELCHAIR, CPAP, GLUCOMETER, TAKES PO MED FOR DM, ALSO HAS BPM. FEELS SAFE TO GO BACK HOME, STILL DRIVE, SPOUSE AND DAUGHTER ABLE TO ASSIST WITH TRANSPORTATION AND NEEDS NECESSARY. DISCUSSED MD RECOMMENDATIONS FOR SHORT TERM REHAB AT [facility], PT AGREEABLE, CONSENT SIGNED [facility] FOR [facility]. [facility] ONCE APPROVED. Addendum: 09/18/24 at 1827 by FLORES MONTGOMERY LVN Amended: Links added.
--- NOTE | 2024-09-18 11:30 | NUR ---
BLOOD GLUCOSE 147. NO INSULIN COVERAGE NEEDED AT THIS TIME.
--- NOTE | 2024-09-18 14:00 | NUR ---
DID NOT GIVE NEURONTIN.PATIENT WAS DOING PHYSICALTHERAPY AND STATED TO GIVE IT TO HIM LATER.
[2024-09-18] MEDS: ketOROlac 15MG/ML VIAL (15MG/ML) IV PRN (15:18)
--- NOTE | 2024-09-18 16:25 | NUR ---
BLOOD GLUCOSE 108. NO INSULIN COVERAGE NEEDED AT THIS TIME.
--- NOTE | 2024-09-18 16:45 | NUR ---
ORTHO COORDINATOR: REINFORCED TEACHING. PATIENT UP TO CHAIR, FAMILY AT BEDSIDE. PATIENT REPORTS WALKING OUTSIDE OF ROOM WITH PHYSICAL THERAPY X 2 TODAY. REPORTS INCREASED PAIN AFTER WORKING WITH PHYSICAL THERAPY. REASSURED PATIENT THIS WAS NORMAL AND WE SHOULD PREMEDICATE PRIOR TO PHYSICAL THERAPY. ASKED IF PATIENT CALLED FOR PAIN MEDICATION, RESPONSE NO. REINFORCED PAIN MEDICATION AVAILABLE FOR PAIN SCALE FROM 1-10, ENCOURAGED HIM TO REQUEST MEDICATION FOR LEVELS LESS THAN 4, PATIENT VERBALIZED UNDERSTANDING.
--- NOTE | 2024-09-18 17:00 | NUR ---
CALLED DR. YBARRA TO DISCUSSED PAIN MANAGEMENT. ( VIEW ORDERS)
[2024-09-18] MEDS: HYDROcodone/APAP 5/325 1 TAB TABLET PO PRN (19:42)
--- NOTE | 2024-09-18 19:48 | PN ---
SUBJECTIVE: The patient is ____ status post left knee osteoarthritis, with Dr. Amor. Comfortable, afebrile. No chest pain, palpitations. No nausea or vomiting. Tolerating physical therapy. OBJECTIVE: GENERAL: Currently, awake, alert, oriented in person, time and place. VITAL SIGNS: Blood pressure 128/70, pulse 73, respiratory rate 16. HEENT: Normocephalic, atraumatic. LUNGS: Clear to auscultation. HEART: S1, S2 are distant. ABDOMEN: Soft, nontender. LABORATORY DATA: WBC count 13.3, hemoglobin 11.5. Sodium 140, potassium 3.8, BUN 13, creatinine 0.9. ASSESSMENT AND PLAN: * Status post left total knee arthroplasty. Continue with deep venous thrombosis prophylaxis, gastrointestinal prophylaxis, pulmonary prophylaxis. * Type 2 diabetes. Continue home medications. * Hypertension. Continue current treatment. * Dyslipidemia. Continue with rosuvastatin. Plan to discharge when cleared by Orthopedics. Follow up in my office after discharge; however, follow up at SNF if transfer. DOS: 09/18/2024 TID: [id number] RECEIPT: [id number] MTDD
[2024-09-19] VITALS: BP 139/74; PULSE 82; RESP 18; TEMP 98.3
[2024-09-19 04:00] VITALS: BP 119/66; PULSE 74; RESP 18; TEMP 98
[2024-09-19 08:00] VITALS: BP 138/54; PULSE 76; RESP 16; TEMP 99.1; O2SAT 99
[2024-09-19 12:00] VITALS: BP 132/93; PULSE 78; RESP 17; TEMP 98
--- NOTE | 2024-09-19 15:30 | NUR ---
ORTHO COORDINATOR: REINFORCED TEACHING. PATIENT IN BED. AT BEDSIDE. PATIENT REPORTS WORKING WITH PHYSICAL THERAPY 2 TIMES TODAY, REPORTS MAKING PROGRESS. ENCOURAGED PATIENT TO CONTINUE USE OF INCENTIVES SPIROMETER, FOOT FLEXION AND EXTENSION EXERCISES AND PREMEDICATION PRIOR TO PHYSICAL THERAPY WHILE IN REHAB. PATIENT AND VERBALIZED UNDERSTANDING. PAIN CONTROLLED. NO ADDITIONAL QUESTIONS/CONCERNS AT THIS TIME.
[2024-09-19] MEDS ORDERED: HYDR-4060 PO (15:54)
[2024-09-19] MEDS ORDERED: ASPI-1026 PO (15:54)
[2024-09-19] MEDS ORDERED: CYCL-309 PO (15:54)
[2024-09-19] MEDS ORDERED: GABA100C PO (15:54)
[2024-09-19] MEDS ORDERED: DOCU-116 PO (15:54)
[2024-09-19 16:00] VITALS: BP 147/74; PULSE 83; RESP 16; TEMP 98
--- NOTE | 2024-09-19 16:00 | NUR ---
report called to [facility] to jorge zaragozan.patient will transfer by van to facility. drewssing removed to left knee incision clean dry and intact pink in color no drainage
--- NOTE | 2024-09-19 20:03 | PN ---
SUBJECTIVE: Comfortable, afebrile, status post left total knee arthroplasty. Tolerating physical therapy. No fever, chills. No chest pain or palpitations. No nausea or vomiting. OBJECTIVE: GENERAL: Currently awake, alert, oriented in person, time and place, not in distress. VITAL SIGNS: In the chart. HEENT: Normocephalic, atraumatic. LUNGS: Clear to auscultation. HEART: S1, S2 are distant. ABDOMEN: Soft and nontender. EXTREMITIES: The left knee is covered with surgical gauzes. LABORATORY DATA: WBC count today is pending. Yesterday, WBC count was 13.3. ASSESSMENT AND PLAN: * Status post left total knee arthroplasty. Continue with deep venous thrombosis prophylaxis, gastrointestinal prophylaxis, pulmonary prophylaxis. * Type 2 diabetes. Continue current medications. * Hypertension, controlled. Continue current treatment. * Dyslipidemia. Continue current treatment. Plan to discharge to SNF when cleared by Orthopedics. TID: [id number] RECEIPT: [id number]
[2024-09-20] MEDS ORDERED: BisaCODYL 10 MG SUPP.RECT RC PRN ×2 (09:00)
[2024-09-24] MEDS ORDERED: Tirzepatide (Mounjaro) 10 MG SQ SCH (09:00)
== END 2024-09-19 17:15 ==
LOC: DAH 06:50 → DAHIP 06:51 → 4AH 12:40
PROVIDERS: ADMIT Student in an Organized Health Care Education/Training Program; ATTEND Student in an Organized Health Care Education/Training Program
DX: M17.12 Unilateral primary osteoarthritis, left knee (principal); M25.562 Pain in left knee; E11.9 Type 2 diabetes mellitus without complications; E78.5 Hyperlipidemia, unspecified; I10 Essential (primary) hypertension; Z98.890 Other specified postprocedural states; Z79.899 Other long term (current) drug therapy
CPT/HCPCS: 82040; 80048 ×2; 85025; 85610; 85730; 84134; 86140; 36415 ×2; 87641; 27447; 64447; 96376 ×2; 96365; 96366 ×2; 96375; 82948 ×11; 73560; 97161; 97116 ×5; 85027; 97530 ×4; G0378 ×51; A4663; J3010 ×2; J3490 ×6; J7030; J2003; J2250; J2704; J2405; J1885 ×6; J2710; J1100 ×2; J2175; J2795 ×3; J2371; J0690 ×4; C1713 ×2; C1776 ×2; A4649 ×2; A4930; A6255; A5120; A4215; A4223 ×2; A4213; A4222; A4221; A4216